=== PATIENT | female | born 1955 | race Caucasian/White ===

== ENCOUNTER 2023-04-21 11:40 | Observation (INO) ==
[~2023-04-21 11:40] MED LIST: Buffered Lidocaine 1% SYRIN 1 ml INTRADERM ONE; Famotidine IV 10 MG/ML 2 ml VIAL (20 mg) IV ONE; Lactated Ringers 1000 ml BAG 1,000 ML IV SCH
[2023-04-21] MEDS ORDERED: ceFAZolin 2 GM in NS PREMIX 2 GM/100 ML BAG IVPB ONE (12:10)
[2023-04-21] MEDS ORDERED: Famotidine IV 10 MG/ML 2 ml VIAL (20 mg) ONE (12:12)
[2023-04-21 12:28] LABS: Rapid COVID-19 Molecular Undetected (Undetected)
[2023-04-21] MEDS ORDERED: fentaNYL 100 mcg/2 ml 50 MCG/ML VIAL ONE ×2 (12:35→14:20)
[2023-04-21] MEDS ORDERED: Midazolam 2 mg/2 ml VIAL 1 mg/ml 2 ml VIAL (2 mg) ONE (12:35)
[2023-04-21 12:36] LABS: INR 1.01 (0.88-1.18)
[2023-04-21] MEDS ORDERED: Glycopyrrolate IV 0.2 MG/ML 1 ML VIAL ONE (13:36)
[2023-04-21] MEDS ORDERED: Ondansetron 4 mg VIAL 2 MG/ML 2 ml VIAL ONE (13:36)
[2023-04-21] MEDS ORDERED: Dexamethasone IV 4 MG/ML VIAL 1 ml VIAL ONE (13:36)
[2023-04-21] MEDS ORDERED: Propofol 10 MG/ML 20 ML BTL ONE ×2 (13:36→17:09)
[2023-04-21] MEDS ORDERED: Lidocaine 2% PF 5 ML VIAL ONE (13:38)
[2023-04-21] MEDS ORDERED: Midazolam 5 mg/5 ml VIAL 1 mg/ml 5 ml VIAL (5 mg) ONE (14:20)
[2023-04-21] MEDS ORDERED: ROPIVACAINE 5 MG/ML 30 ML BTL (0.5%) ONE (14:20)
[2023-04-21] MEDS ORDERED: Naloxone 0.4 mg VIAL 0.4 mg/ml 1 ml VIAL IV PRN (15:02)
[2023-04-21] MEDS ORDERED: fentaNYL 100 mcg/2 ml 50 MCG/ML VIAL IV PRN (15:02)
[2023-04-21] MEDS ORDERED: HYDROmorphone 1 MG/1 ML SYRINGE IV PRN (15:02)
[2023-04-21] MEDS ORDERED: Bupivacaine 0.5% SDV PF 30ML VIAL ONE (15:23)
[2023-04-21] MEDS ORDERED: Ketamine HCL 50 mg/ml 10 ml VIAL (500 MG) ONE (16:01)
[2023-04-21] MEDS ORDERED: Lactulose 30 ml UDC PO PRN (16:38)
[2023-04-21] MEDS ORDERED: Magnesium Hydroxide LIQ 30 ML UDC PO PRN (16:38)
[2023-04-21] MEDS ORDERED: Ondansetron ODT 4 mg TAB 4 MG TAB PO PRN (16:38)
[2023-04-21] MEDS ORDERED: Morphine 2 MG/ML SYRINGE IV PRN (16:38)
[2023-04-21] MEDS ORDERED: Ondansetron 4 mg VIAL 2 MG/ML 2 ml VIAL IV PRN (16:38)
[2023-04-21] MEDS: Lactated Ringers 1000 ml BAG 1,000 ML IV SCH (19:33)
[2023-04-21] MEDS: Magnesium Hydroxide LIQ 30 ML UDC PO SCH (21:11)
[2023-04-22] MEDS: ceFAZolin 1 GM ADVAN 1 GM in NS 0.9% 50 ML 50 ML IVPB SCH ×3 (01:16→15:43)
[2023-04-22] MEDS: Lactated Ringers 1000 ml BAG 1,000 ML IV SCH (05:32)
[2023-04-22 06:44] LABS: Hematocrit 33.3 % (35-45); Hemoglobin 11.1 g/dL (11.5-14.3); Mean Platelet Volume 8.9 fL (7.5-11.2); Platelet Count 250 10^3/uL (150-450)
[2023-04-22 07:16] LABS: Calcium 8.3 mg/dL (8.6-10.3); Creatinine, Serum 0.76 mg/dL (0.51-0.95); Potassium 3.9 mmol/L (3.5-5.0); eGFR CKD-EPI 85.8 (>60)
[2023-04-22] MEDS: Magnesium Hydroxide LIQ 30 ML UDC PO SCH (08:19)
[2023-04-22] MEDS ORDERED: Vitamin THERAPEUTIC TAB PO SCH (09:00)
[2023-04-22 14:09] VITALS: BP 110/62
== END 2023-04-22 17:33 | disposition home or self-care (01) ==
LOC: SSU 11:40 → OR 11:40
PROVIDERS: ADMIT Orthopaedic Surgery Adult Reconstructive Orthopaedic Surgery; ATTEND Orthopaedic Surgery Adult Reconstructive Orthopaedic Surgery